=== PATIENT | female | born 1940 | race Caucasian/White ===

== ENCOUNTER 2022-12-18 09:56 | Day surgery (SDC) | payer MEDICARE, SELFPAY ==
[2022-12-18] MEDS: Tropicam./Phenyleph. (1/2.5%) 5 ML BTL OS ×3 (10:44→10:56)
[2022-12-18 10:45] VITALS: BP 159/84; PULSE 75; RESP 18; TEMP 36.4; O2SAT 96
--- NOTE | 2022-12-18 11:14 | ANES.PREOP_ITS ---
General Info Date of Service Date Performed: 12/18/22 Height: 4 ft 10.5 in Weight: 81.647 kg Body Mass Index (BMI): 36.9 Surgical Procedure: Operation Date: 12/18/22 12:10 Proposed Procedure Side Surgeon p Cataract Extraction with IOL Implant Left Kannan Babb MD Meds Allergies and Home Medications Allergies Allergy/AdvReac Type Severity Reaction Status Date / Time Sulfa (Sulfonamide Allergy Severe Headache Unverified 12/18/22 10:35 Antibiotics) amlodipine [From [facility]] Allergy Intermediate Swelling/Ed Unverified 12/18/22 10:35 cristal Home Medication Medication Instructions Recorded acetaminophen 300 mg-codeine 30 mg 1 tab PO Q8H PRN 12/16/22 tablet albuterol sulfate 90 mcg/actuation 1 puff inhalation DIRECTED 12/16/22 aerosol inhaler (ProAir HFA) allopurinol 100 mg tablet 200 mg PO HS 12/16/22 celecoxib 200 mg capsule 200 mg PO HS 12/16/22 cholecalciferol (vitamin D3) 50 2,000 unit PO DAILY 12/16/22 mcg (2,000 unit) tablet (Vitamin D3) colchicine (gout) 0.6 mg tablet 0.6 mg PO DIRECTED 12/16/22 cyclobenzaprine 7.5 mg tablet 7.5 mg PO DIRECTED PRN 12/16/22 duloxetine 60 mg capsule,delayed 60 mg PO HS 12/16/22 release insulin glargine 100 unit/mL (3 28 unit subcut DAILY 12/16/22 mL) subcutaneous pen (Lantus Solostar U-100 Insulin) lisinopril 5 mg tablet 15 mg PO HS 12/16/22 metoprolol succinate 100 mg 100 mg PO HS 12/16/22 tablet,extended release 24 hr multivitamin 1 tab PO HS 12/16/22 repaglinide 1 mg tablet 1 mg PO BID 12/16/22 Current Visit Medications: Current Medications Generic Name Dose Route Start Last Admin Trade Name Freq PRN Reason Stop Dose Admin Acetaminophen 1,000 mg 12/18/22 06:00 Acetaminophen 500 Mg Tab PO 01/17/23 05:59 Q4H PRN PRN Balanced Salt Solution 500 ml 12/18/22 06:00 Balanced Salt Soln.-Plus 500 Ml Bag OP 01/17/23 05:59 DIRECTED [facility] Miscellaneous Medication 0 ml 12/18/22 06:00 Prednisolone 1%, Moxifloxacin 0.5%, Nepafenac 0.1% 5ml Btl OS 01/17/23 05:59 DIRECTED [facility] Miscellaneous Medication 0 ml 12/18/22 06:00 12/18/22 10:56 Tropicam./Phenyleph. 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-related cataract, left eye H25.12 Medical History Medical History Aortic valve sclerosis Breast cancer CKD (chronic kidney disease), stage III Hypertensive disorder Osteoarthritis Type 2 diabetes mellitus Surgical History Surgical History (Updated 12/18/22 @ 10:42 by Dolly Goncalves) History of breast biopsy Hx of appendectomy Tobacco Smoking/Tobacco Use Status: Never Alcohol Alcohol Intake: current Alcohol intake frequency: holidays/special occasions only Substance Use Substance use: Never Substance use type: does not use Details: alcohol : t- 2years Vital Signs and Lab Results Vital Signs Most Recent Vital Signs in EMR: Most Recent Vital Signs Temp Pulse Resp BP Pulse Ox 36.4 C L 75 18 159/84 H 96 12/18/22 10:45 12/18/22 10:45 12/18/22 10:45 12/18/22 10:45 12/18/22 10:45 Point of Care Results Point of Care Results: Finger Stick Blood Glucose 200 12/18/22 10:37 Lab Results Blood Type / Crossmatch: No Data to Display Complete Blood Count: No Data to Display Complete Metabolic Panel: No Data to Display Liver Function Panel: No Data to Display Coagulation Panel: No Data to Display Cardiac Panel: No Data to Display Arterial Blood Gas: No Data to Display Venous Blood Gas: No Data to Display Pancreas Panel: No Data to Display Thyroid Panel: No Data to Display Infectious Disease: No Data to Display Blood Cultures: No Data to Display Toxicology Panel: No Data to Display Anesthesia Assessment and Plan Anesthesia History Personal History: No History of Anesthesia Complications Family History: No Family History of Anesthesia Complications Exercise Tolerance Exercise Tolerance: Metabolic Equivalents>4 Cardiac & Pulmonary Exam Cardiac Exam: Heart Murmur Present Pulmonary Exam: Clear Bilateral Breath Sounds Implantable Cardiac Device Does patient have a Pacemaker or an ICD?: No Airway Exam Known Difficult Airway: No Mallampati Class: 1 Mouth Opening: Normal (> 3cm) Thyromental Distance: Greater than 3 cm Neck Range of Motion: Full ROM Neck Circumference: Normal Teeth Condition: Normal Dentition ASA Classification ASA Score: ASA 3 Emergency Case?: No NPO Status NPO Status: NPO Clears >2 hours, Solids >8 hours Anesthesia Plan Resuscitation Status: Full Code Anesthesia Technique: MAC Anesthesia Airway Planned: Natural Airway Monitors Used: Standard Monitors
[2022-12-18 11:45] VITALS: BMI 36.9
[2022-12-18] MEDS: Balanced Salt Soln.-PLUS 500 ML BAG OP (11:57)
[2022-12-18] MEDS: Tetracaine 0.5% 4 ML BTL OS (11:58)
[2022-12-18] MEDS: Duovisc Viscoelastic System EACH 1 EACH (11:59)
[2022-12-18] MEDS: Lidocaine 1% Pres-Free 5 ML VIAL (11:59)
[2022-12-18] MEDS: Phenylephrine/Lidocaine (15/10) MG/ML 1 ML VIAL (12:00)
[2022-12-18] MEDS: Povidone-Iodine Ophth 30 ML BTL (12:00)
[2022-12-18 12:16] VITALS: BP 144/82; PULSE 60; RESP 18; TEMP 36.6; O2SAT 96
--- NOTE | 2022-12-18 12:16 | W.PM.DSUDISC ---
Date of service: 12/18/22 Time of Service: 12:16 Discharge Plan Disposition Patient Disposition: Home Discharge Details Attending Provider: Kannan Babb Primary Care Provider: Trever Gayle Home Meds and New Rx's Prescriptions: No Action multivitamin Tablet 1 tab PO HS celecoxib 200 mg capsule 200 mg PO HS metoprolol succinate 100 mg tablet extended release 24 hr 100 mg PO HS acetaminophen-codeine 300-30 mg tablet 1 tab PO Q8H PRN Patient Comments: TAKE ONE TABLET BY MOUTH EVERY 8 HOURS NEEDED FOR PAIN allopurinol 100 mg tablet 200 mg PO HS lisinopril 5 mg tablet 15 mg PO HS albuterol sulfate [ProAir HFA] 90 mcg/actuation Hfa Aerosol Inhaler 1 puff INHALATION DIRECTED colchicine (gout) 0.6 mg Tablet 0.6 mg PO DIRECTED repaglinide 1 mg Tablet 1 mg PO BID duloxetine 60 mg capsule,delayed release(DR/EC) 60 mg PO HS cyclobenzaprine 7.5 mg tablet 7.5 mg PO DIRECTED PRN insulin glargine [Lantus Solostar U-100 Insulin] 100 unit/mL (3 mL) Insulin Pen 28 unit SUBCUT DAILY cholecalciferol (vitamin D3) [Vitamin D3] 50 mcg (2,000 unit) Tablet 2,000 unit PO DAILY Discharge Instructions Stand Alone Forms: Post-op Topical Cataract, Milton Griffin ([facility]) Discharge Orders Discharge Orders: Discharge Order (Routine); Ordered 12/18/22 Ordered By: Kannan Babb DS: Diagnosis Discharge Diagnosis (1) Nuclear age-related cataract, left eye: Status: Resolved
--- NOTE | 2022-12-18 12:17 | W.PM.OP ---
Date of service: 12/18/22 Time of Service: 12:17 Operative Note Operative Note DATE OF PROCEDURE: 12/18/22 PRE-OP DIAGNOSIS: Nuclear/cortical cataract, left eye POST-OP DIAGNOSIS: same PROCEDURE: Cataract extraction using phacoemulsification with intraocular lens implant, left eye SURGEON: Kannan Babb ANESTHESIA TYPE: Local By Surgeon and MAC Refer to Anesthesia Record PATHOLOGY: none sent COMPLICATIONS: None Patient was transported to: same day Patient's condition: stable Implants: Trino and Trino Tecnis Eyhance [id number] Indications: Progressive decreased vision due to cataract, left eye Procedure Description: CATARACT SURGERY OPERATIVE REPORT PREOPERATIVE DIAGNOSIS: 1. Nuclear/cortical cataract, left eye POSTOPERATIVE DIAGNOSIS: Same OPERATION: 1. Cataract extraction using phacoemulsification with posterior chamber intraocular lens implant, left eye. IOL: IOL Chemist Water Purification/Model: Trino & Trino Tecnis Eyhance DIB00 IOL Power: + 24.0 diopters IOL Serial Number: [id number] Optic Diameter: 6.0 mm Haptic/Overall Diameter: 13.0 mm PHACO INFO: ValerioMasquemedicoson Vision System with OZil and Active Fluidics Cumulative Dispersed Energy (CDE): 8.41 seconds SURGEON: Kannan Babb MD, BASHIR ANESTHESIA: Monitored A [facility] (MAC), with local sub-tenon's anesthetic infiltration COMPLICATIONS: None SPECIMENS: None INDICATIONS FOR PROCEDURE: Patient is an 82-year-old lady with history of diminished visual acuity in her left eye secondary to the development of nuclear cataract. She is significantly symptomatic that she desires cataract surgery and attempt to improve and maximize her vision. The option of cataract surgery was offered to the patient and she wished to proceed. See office notes for detailed information. PROCEDURE: The correct surgical eye was identified and marked as the left eye and the pupil was dilated in the preoperative area using mydriatics and cycloplegics. The dilated pupil size was 6.0 mm. The patient elected to proceed without oral sedation. The patient was brought to the operating room where cardiopulmonary monitoring was instituted and surgical time-out was performed, confirming the correct operative eye and IOL power. Topical anesthesia was administered and ophthalmic povidone-iodine 5% was instilled into the conjunctival fornices. The kalli-ocular area was prepped with Betadine 10% solution and draped in the usual sterile fashion for intraocular surgery, including an aperture drape. A Tegaderm transparent film dressing was cut in half and used to cover the lashes and lid margins. Care was taken to sequester the lashes and lid margins under the Tegaderm dressing. A lid speculum was placed between the lids of the operative eye and the Valerio LuxOR Revalia operating microscope was maneuvered into position. Aleida scissors were then used to make a conjunctival buttonhole approximately 6mm posterior to the limbus in the inferonasal quadrant. Blunt dissection was carried out to expose bare sclera, and a blunt-tipped sub-tenon?s anesthesia cannula was introduced and passed posteriorly along the globe where non-preserved plain lidocaine was injected into posterior sub-Tenon?s space. A sideport knife was used to make a paracentesis port. Intraocular phenylephrine/lidocaine was injected into the anterior chamber.. The anterior chamber was filled with viscoelastic. A keratome knife was used to construct a 2-plane near-clear corneal tunnel extending 2.0mm into clear cornea. A flap was raised on the anterior capsule and capsulorhexis forceps were used to complete a continuous curvilinear capsulorhexis of 5.0 mm. Balanced salt solution was then used to perform cortical cleaving hydrodissection and nuclear hydrodelineation until the lens could be freely rotated within the capsular bag. The lens nucleus was then disassembled and removed within the capsular bag and iris plane using phacoemulsification. Residual cortical material was removed using the irrigation/aspiration handpiece. The posterior capsule was carefully polished to remove as much residual lens epithelial cells as safely possible. The capsular bag was then inflated and the anterior chamber deepened with viscoelastic. The lens implant described above was inserted into the capsular bag using the Trino and Trino Simplicity pre-loaded injector. A Kuglen hook was used to dial the IOL into position. Residual viscoelastic was then removed first from posterior to the IOL, then from the anterior chamber using the I/A handpiece. The lens implant was noted to center nicely within the capsular bag. The incisions were stromally hydrated, and the anterior chamber was reformed using BSS. Then 0.5cc of moxifloxacin 1.0mg/ml were injected into the capsular bag and anterior chamber. The incisions were checked with a Weck spear and found to be secure. Several drops of ophthalmic povidone-iodine 5% were then applied to the eye followed by two drops of Imprimis combination prednisolone/moxifloxacin/nepafenac solution. The drapes were removed and a clear plastic protective eye shield was placed over the eye. The patient was then returned to Same Day Surgery in stable condition.
--- NOTE | 2022-12-18 12:52 | W.ANESPOSTOP ---
Postoperative Evaluation Date, Time and Location Date Performed: 12/18/22 Time Performed: 12:25 Patient Location: Day Surgery Unit Vital Signs Most Recent Imported Vital Signs: Most Recent Vital Signs Temp Pulse Resp BP Pulse Ox 36.6 C 60 18 144/82 H 96 12/18/22 12:16 12/18/22 12:16 12/18/22 12:16 12/18/22 12:16 12/18/22 12:16 Pain Score Most Recent Pain Score: Most Recent Pain Score Pain Level 0 12/18/22 12:16 Assessment Mental Status: Awake (Alert & Oriented to Patient Baseline) Airway and Respiratory Function: Patent airway with normal (patient baseline) respiratory exam Cardiovascular Function: Hemodynamically Stable Hydration Status: Adequately Hydrated Nausea & Vomiting: No Nausea or Vomiting Pain: Pt. Denies Any Pain Peripheral Nerve Block: Patient did not receive a nerve block
== END 2022-12-18 12:36 | disposition home or self-care (01) ==
LOC: SUR 09:58
PROVIDERS: PCP Family Medicine; Visit Provider Ophthalmology
PROC: (CPT 66984; principal; 2022-12-18 12:00)
DX: H25.12 Age-related nuclear cataract, left eye (principal); I10 Essential (primary) hypertension
CPT/HCPCS: 66984; V2632

== ENCOUNTER 2023-01-01 08:09 | Day surgery (SDC) | payer MEDICARE, SELFPAY ==
--- NOTE | 2023-01-01 07:04 | HPE_ITS ---
Assessment and Plan Assessment and plan (1) Cortical age-related cataract, right eye: Status: Acute Assessment and plan: Assessment: Visually significant cataract of the right eye. Plan: Cataract extraction with lens implantation of the right eye. (2) Nuclear age-related cataract, right eye: Status: Acute Assessment and plan: Assessment: Visually significant cataract of the right eye. Plan: Cataract extraction with lens implantation of the right eye. (3) Diabetic macular edema, right eye: Status: Acute Assessment and plan: Assessment: Diabetic macular edema, right eye. Plan: Subtenons Kenalog at the time of ce/iol to reduce risk of exacerbation of DME History of Present Illness History of Present Illness Chief Complaint: Progressive decreased vision right eye Narrative: Patient is an 82-year-old lady with history of diabetes with diabetic macular edema in the right eye. She noted progressive decreased vision in both eyes at both distance and near, needing more light to see clearly. She also has difficulty with driving particularly at night due to glare. On examination she was noted to have moderate bilateral nuclear and cortical cataract with clinically significant diabetic macular edema in the right eye. The option of cataract surgery was offered to the patient and she wished to proceed. She underwent cataract surgery in the left eye on 12/18/2022 and postoperatively has regained uncorrected visual acuity of 20/40 in the left eye. She now presents for cataract surgery in the right eye. Review of Systems All systems reviewed & are unremarkable except as noted in HPI and below PFSH All Active Problems Cortical age-related cataract, right eye (Acute) Nuclear age-related cataract, right eye (Acute) Diabetic macular edema, right eye (Acute) Medical History Type 2 diabetes mellitus Breast cancer Osteoarthritis Hypertensive disorder CKD (chronic kidney disease), stage III Aortic valve sclerosis Surgical History Hx of cataract surgery left Hx of appendectomy History of breast biopsy Social History Smoking/Tobacco Use Status: Never Smoking risk assessment performed?: Yes Alcohol Intake: current Alcohol Intake frequency: holidays/special occasions only Drug use: Never Substance use type: does not use Details: alcohol : t- 2years Housing: house Do you feel safe at home: Yes Do you feel safe in your relationship?: Yes Meds Allergies and Home Medications Allergies Allergy/AdvReac Type Severity Reaction Status Date / Time Sulfa (Sulfonamide Allergy Severe Headache Unverified 01/01/23 08:26 Antibiotics) amlodipine [From [facility]] Allergy Intermediate Swelling/Ed Unverified 01/01/23 08:26 cristal Home Medications Medication Instructions Recorded Confirmed Type acetaminophen 300 mg-codeine 30 mg 1 tab PO Q8H PRN 12/16/22 01/01/23 History tablet albuterol sulfate 90 mcg/actuation 1 puff inhalation DIRECTED 12/16/22 12/30/22 History aerosol inhaler (ProAir HFA) allopurinol 100 mg tablet 200 mg PO HS 12/16/22 01/01/23 History celecoxib 200 mg capsule 200 mg PO HS 12/16/22 01/01/23 History cholecalciferol (vitamin D3) 50 2,000 unit PO DAILY 12/16/22 01/01/23 History mcg (2,000 unit) tablet (Vitamin D3) colchicine (gout) 0.6 mg tablet 0.6 mg PO DIRECTED 12/16/22 12/30/22 History cyclobenzaprine 7.5 mg tablet 7.5 mg PO DIRECTED PRN 12/16/22 01/01/23 History duloxetine 60 mg capsule,delayed 60 mg PO HS 12/16/22 01/01/23 History release insulin glargine 100 unit/mL (3 28 unit subcut DAILY 12/16/22 01/01/23 History mL) subcutaneous pen (Lantus Solostar U-100 Insulin) lisinopril 5 mg tablet 15 mg PO HS 12/16/22 01/01/23 History metoprolol succinate 100 mg 100 mg PO HS 12/16/22 01/01/23 History tablet,extended release 24 hr multivitamin 1 tab PO HS 12/16/22 01/01/23 History repaglinide 1 mg tablet 1 mg PO BID 12/16/22 01/01/23 History Exam Eyes Other: Most recent ocular examination is significant for uncorrected visual acuity of 2040 in the left eye, corrected visual acuity is 20/40 in the right eye. Intraocular pressure is 25 OD, 20 OS. Extract motility is normal. Slit-lamp examination reveals moderate nuclear and cortical cataract in the right eye with pupil dilating to 5 mm. There is a well-positioned PCIOL in the left eye with clear posterior capsule. Funduscopic examination shows disc cupping of 0.15 OU with normal vessels OU. In the right eye the macula has a central yellow spot. Resp Auscultation: clear to auscultation bilaterally Cardio Rate: regular rate Rhythm: regular rhythm
--- NOTE | 2023-01-01 08:20 | W.ANESPRE ---
General Info Date of Service Date Performed: 01/01/23 Height: 4 ft 10.5 in Weight: 81.647 kg Body Mass Index (BMI): 36.9 Surgical Procedure: Operation Date: 01/01/23 10:40 Proposed Procedure Side Surgeon p Cataract Extraction with IOL Implant Right Kannan Babb MD Meds Allergies and Home Medications Allergies Allergy/AdvReac Type Severity Reaction Status Date / Time Sulfa (Sulfonamide Allergy Severe Headache Unverified 01/01/23 08:26 Antibiotics) amlodipine [From [facility]] Allergy Intermediate Swelling/Ed Unverified 01/01/23 08:26 cristal Home Medication Medication Instructions Recorded acetaminophen 300 mg-codeine 30 mg 1 tab PO Q8H PRN 12/16/22 tablet albuterol sulfate 90 mcg/actuation 1 puff inhalation DIRECTED 12/16/22 aerosol inhaler (ProAir HFA) allopurinol 100 mg tablet 200 mg PO HS 12/16/22 celecoxib 200 mg capsule 200 mg PO HS 12/16/22 cholecalciferol (vitamin D3) 50 2,000 unit PO DAILY 12/16/22 mcg (2,000 unit) tablet (Vitamin D3) colchicine (gout) 0.6 mg tablet 0.6 mg PO DIRECTED 12/16/22 cyclobenzaprine 7.5 mg tablet 7.5 mg PO DIRECTED PRN 12/16/22 duloxetine 60 mg capsule,delayed 60 mg PO HS 12/16/22 release insulin glargine 100 unit/mL (3 28 unit subcut DAILY 12/16/22 mL) subcutaneous pen (Lantus Solostar U-100 Insulin) lisinopril 5 mg tablet 15 mg PO HS 12/16/22 metoprolol succinate 100 mg 100 mg PO HS 12/16/22 tablet,extended release 24 hr multivitamin 1 tab PO HS 12/16/22 repaglinide 1 mg tablet 1 mg PO BID 12/16/22 Current Visit Medications: Current Medications Generic Name Dose Route Start Last Admin Trade Name Freq PRN Reason Stop Dose Admin Acetaminophen 1,000 mg 01/01/23 06:00 Acetaminophen 500 Mg Tab PO 01/31/23 05:59 Q4H PRN PRN Balanced Salt Solution 500 ml 01/01/23 06:00 Balanced Salt Soln.-Plus 500 Ml Bag OP 01/31/23 05:59 DIRECTED [facility] Miscellaneous Medication 0 ml 01/01/23 06:00 Prednisolone 1%, Moxifloxacin 0.5%, Nepafenac 0.1% 5ml Btl OD 01/31/23 05:59 DIRECTED [facility] Miscellaneous Medication 0 ml 01/01/23 06:00 Tropicam./Phenyleph. (1/2.5%) 5 Ml Btl OD 01/31/23 05:59 DIRECTED [facility] Tetracaine HCl 0 ml 01/01/23 06:00 Tetracaine 0.5% 4 Ml Btl OD 01/31/23 05:59 DIRECTED [facility] PFSH Active Problems Active Problems: Problem Status Onset Code Cortical age-related cataract, right eye H25.011 Nuclear age-related cataract, right eye H25.11 Diabetic macular edema, right eye E11.311 Nuclear age-related cataract, left eye H25.12 Medical History Medical History Type 2 diabetes mellitus Breast cancer Osteoarthritis Hypertensive disorder CKD (chronic kidney disease), stage III Aortic valve sclerosis Surgical History Surgical History Hx of cataract surgery left Hx of appendectomy History of breast biopsy Tobacco Smoking/Tobacco Use Status: Never Alcohol Alcohol Intake: current Alcohol intake frequency: holidays/special occasions only Substance Use Substance use: Never Substance use type: does not use Details: alcohol : t- 2years Vital Signs and Lab Results Vital Signs Most Recent Vital Signs in EMR: Temp Pulse Resp BP Pulse Ox 36.4 C L 74 16 156/72 H 97 01/01/23 08:41 01/01/23 08:41 01/01/23 08:41 01/01/23 08:41 01/01/23 08:41 Lab Results Blood Type / Crossmatch: No Data to Display Complete Blood Count: No Data to Display Complete Metabolic Panel: No Data to Display Liver Function Panel: No Data to Display Coagulation Panel: No Data to Display Cardiac Panel: No Data to Display Arterial Blood Gas: No Data to Display Venous Blood Gas: No Data to Display Pancreas Panel: No Data to Display Thyroid Panel: No Data to Display Infectious Disease: No Data to Display Blood Cultures: No Data to Display Toxicology Panel: No Data to Display Anesthesia Assessment and Plan Anesthesia History Personal History: No History of Anesthesia Complications Family History: No Family History of Anesthesia Complications Exercise Tolerance Exercise Tolerance: Metabolic Equivalents>4 Cardiac & Pulmonary Exam Cardiac Exam: Heart Murmur Present Pulmonary Exam: Clear Bilateral Breath Sounds Implantable Cardiac Device Does patient have a Pacemaker or an ICD?: No Airway Exam Known Difficult Airway: No Mallampati Class: 1 Mouth Opening: Normal (> 3cm) Thyromental Distance: Greater than 3 cm Neck Range of Motion: Full ROM Neck Circumference: Normal Teeth Condition: Normal Dentition ASA Classification ASA Score: ASA 3 Emergency Case?: No NPO Status NPO Status: NPO Clears >2 hours, Solids >8 hours Anesthesia Plan Resuscitation Status: Full Code Anesthesia Technique: MAC Anesthesia Airway Planned: Natural Airway Monitors Used: Standard Monitors Preoperative Comments:: No MKO prior visit. Planning no sedation today. No change in health or status since last visit per patient
[2023-01-01] MEDS: Tropicam./Phenyleph. (1/2.5%) 5 ML BTL OD ×3 (08:39→08:58)
[2023-01-01 08:41] VITALS: BP 156/72; PULSE 74; RESP 16; TEMP 36.4; O2SAT 97
[2023-01-01 09:20] VITALS: BMI 36.9
[2023-01-01] MEDS: Balanced Salt Soln.-PLUS 500 ML BAG OP (09:51)
[2023-01-01] MEDS: Lidocaine 1% Pres-Free 5 ML VIAL (09:52)
[2023-01-01] MEDS: Tetracaine 0.5% 4 ML BTL OD (09:52)
[2023-01-01] MEDS: Duovisc Viscoelastic System EACH 1 EACH (09:53)
[2023-01-01] MEDS: Phenylephrine/Lidocaine (15/10) MG/ML 1 ML VIAL (09:54)
[2023-01-01] MEDS: Povidone-Iodine Ophth 30 ML BTL (09:55)
[2023-01-01] MEDS: Triamcinolone 40 MG/ML VIAL (09:56)
[2023-01-01 10:21] VITALS: BP 133/59; PULSE 66; RESP 16; TEMP 36.5; O2SAT 100
--- NOTE | 2023-01-01 10:21 | W.PM.DSUDISC ---
Date of service: 01/01/23 Time of Service: 10:21 Discharge Plan Disposition Patient Disposition: Home Discharge Details Attending Provider: Kannan Babb Primary Care Provider: Trever Gayle Home Meds and New Rx's Prescriptions: No Action multivitamin Tablet 1 tab PO HS celecoxib 200 mg capsule 200 mg PO HS metoprolol succinate 100 mg tablet extended release 24 hr 100 mg PO HS acetaminophen-codeine 300-30 mg tablet 1 tab PO Q8H PRN Patient Comments: TAKE ONE TABLET BY MOUTH EVERY 8 HOURS NEEDED FOR PAIN allopurinol 100 mg tablet 200 mg PO HS lisinopril 5 mg tablet 15 mg PO HS albuterol sulfate [ProAir HFA] 90 mcg/actuation Hfa Aerosol Inhaler 1 puff INHALATION DIRECTED colchicine (gout) 0.6 mg Tablet 0.6 mg PO DIRECTED Patient Comments: pt. reports she has never taken repaglinide 1 mg Tablet 1 mg PO BID duloxetine 60 mg capsule,delayed release(DR/EC) 60 mg PO HS cyclobenzaprine 7.5 mg tablet 7.5 mg PO DIRECTED PRN insulin glargine [Lantus Solostar U-100 Insulin] 100 unit/mL (3 mL) Insulin Pen 28 unit SUBCUT DAILY Patient Comments: 212912/31/22 cholecalciferol (vitamin D3) [Vitamin D3] 50 mcg (2,000 unit) Tablet 2,000 unit PO DAILY Discharge Instructions Stand Alone Forms: Post-op Topical Cataract, Milton Saucedoey ([facility]) Discharge Orders Discharge Orders: Discharge Order (Routine); Ordered 01/01/23 Ordered By: Kannan Babb DS: Diagnosis Discharge Diagnosis (1) Cortical age-related cataract, right eye: Status: Resolved (2) Nuclear age-related cataract, right eye: Status: Resolved (3) Diabetic macular edema, right eye: Status: Chronic
--- NOTE | 2023-01-01 10:22 | ROE_ITS ---
Date of service: 01/01/23 Time of Service: 10: Operative Note Operative Note DATE OF PROCEDURE: 01/01/23 PRE-OP DIAGNOSIS: Nuclear/cortical cataract, right eye Diabetic macular edema, right eye POST-OP DIAGNOSIS: same PROCEDURE: Cataract extraction using phacoemulsification with intraocular lens implant, right eye SURGEON: Kannan Babb ANESTHESIA TYPE: Local By Surgeon and MAC Refer to Anesthesia Record ESTIMATED BLOOD LOSS: 0 PATHOLOGY: none sent COMPLICATIONS: None Patient was transported to: same day Patient's condition: stable Implants: Trino & Trino Tecnis Eyhance [id number] Indications: Progressive visual loss due to cataract, right eye Procedure Description: CATARACT SURGERY OPERATIVE REPORT PREOPERATIVE DIAGNOSIS: 1. Nuclear/cortical cataract, right eye 2. Diabetic macular edema, right eye POSTOPERATIVE DIAGNOSIS: Same OPERATION: 1. Cataract extraction using phacoemulsification with posterior chamber intraocular lens implant, right eye. IOL: IOL Drywall Foreman/Model: Trino & Trino Tecnis Eyhance DIB00 IOL Power: + 25.0 diopters IOL Serial Number: [id number] Optic Diameter: 6.0mm Haptic/Overall Diameter: 13.0mm PHACO INFO: Valerio SamEnricourion Vision System with OZil and Active Fluidics Cumulative Dispersed Energy (CDE): 5.46 seconds SURGEON: Kannan Babb MD, BASHIR ANESTHESIA: Monitored Anesthesia Care (MAC), with local sub-tenon's anesthetic infiltration COMPLICATIONS: None SPECIMENS: None INDICATIONS FOR PROCEDURE: Patient is an 82-year-old lady with history of diabetes with diabetic macular edema of the right eye who has developed a significant nuclear/cortical cataract. She is significantly symptomatic that she desires cataract surgery and attempt to improve and maximize her vision. The option of cataract surgery was offered to the patient and she wished to proceed. She has already undergone cataract surgery in the left eye and is doing well postoperatively. She now presents for cataract surgery in the right eye. PROCEDURE: The correct surgical eye was identified and marked as the right eye and the pupil was dilated in the preoperative area using mydriatics and cycloplegics. The dilated pupil size was 6.0 mm. The patient elected to proceed without oral sedation. The patient was brought to the operating room where cardiopulmonary monitoring was instituted and surgical time-out was performed, confirming the correct operative eye and IOL power. Topical anesthesia was administered and ophthalmic povidone-iodine 5% was instilled into the conjunctival fornices. The kalli-ocular area was prepped with Betadine 10% solution and draped in the usual sterile fashion for intraocular surgery, including an aperture drape. A Tegaderm transparent film dressing was cut in half and used to cover the lashes and lid margins. Care was taken to sequester the lashes and lid margins under the Tegaderm dressing. A lid speculum was placed between the lids of the operative eye and the Valerio LuxOR Revalia operating microscope was maneuvered into position. Aleida scissors were then used to make a conjunctival buttonhole approximately 6mm posterior to the limbus in the inferonasal quadrant. Blunt dissection was carried out to expose bare sclera, and a blunt-tipped sub-tenon?s anesthesia cannula was introduced and passed posteriorly along the globe where non- preserved plain lidocaine was injected into posterior sub-Tenon?s space. A sideport knife was used to make a paracentesis port. Intraocular phenylephrine/lidocaine was injected into the anterior chamber. The anterior chamber was filled with viscoelastic. A keratome knife was used to construct a 2-plane clear corneal tunnel extending 2.0mm into clear cornea. A flap was raised on the anterior capsule and capsulorhexis forceps were used to complete a continuous curvilinear capsulorhexis of 4.8 mm. Capsulorhexis wanted to go peripherally in the inferotemporal quadrant. Additional Viscoat was injected into the anterior chamber to flatten the capsule and deep in the anterior chamber, and the capsulorrhexis was brought back centrally. Final capsulorrhexis was ovoid/teardrop shaped Balanced salt solution was then used to perform cortical cleaving hydrodissection and nuclear hydrodelineation until the lens could be freely rotated within the capsular bag. The lens nucleus was then disassembled and removed within the capsular bag and iris plane using phacoemulsification. Resi dual cortical material was removed using the I/A handpiece. The posterior capsule was carefully polished to remove as much residual lens epithelial cells as safely possible. The capsular bag was then inflated and the anterior chamber deepened with cohesive viscoelastic. The lens implant described above was inserted into the capsular bag using the Trino and Jorge Simplicity pre- loaded injector. A Kuglen hook was used to dial the IOL into position. Residual viscoelastic was then removed first from posterior to the IOL, then from the anterior chamber using the I/A handpiece. The lens implant was dialed such that the haptic was in the inferior temporal quadrant in the area of peripheral capsulorhexis extension. The lens implant was noted to center nicely within the capsular bag. The incisions were stromally hydrated, and the anterior chamber was reformed using BSS. Then 0.5cc of moxifloxacin 1.0mg/ml were injected into the capsular bag and anterior chamber. The incisions were checked with a Weck spear and found to be secure. Several drops of ophthalmic povidone- iodine 5% were then applied to the eye followed by two drops of Imprimis combination prednisolone/moxifloxacin/nepafenac solution. The drapes were removed and a clear plastic protective eye shield was placed over the eye. The patient was then returned to [facility] Day Surgery in stable condition.
--- NOTE | 2023-01-01 10:58 | W.ANESPOSTOP ---
Postoperative Evaluation Date, Time and Location Date Performed: 01/01/23 Time Performed: 10:22 Patient Location: Day Surgery Unit Vital Signs Most Recent Imported Vital Signs: Most Recent Vital Signs Temp Pulse Resp BP Pulse Ox 36.5 C 66 16 133/59 L 100 01/01/23 10:21 01/01/23 10:21 01/01/23 10:21 01/01/23 10:21 01/01/23 10:21 Pain Score Most Recent Pain Score: Most Recent Pain Score Pain Level 4 01/01/23 10:21 Assessment Mental Status: Awake (Alert & Oriented to Patient Baseline) Airway and Respiratory Function: Patent airway with normal (patient baseline) respiratory exam Cardiovascular Function: Hemodynamically Stable Hydration Status: Adequately Hydrated Nausea & Vomiting: No Nausea or Vomiting Pain: Pt. Denies Any Pain Peripheral Nerve Block: Other (Local by Dr. Babb)
== END 2023-01-01 10:50 | disposition home or self-care (01) ==
LOC: SUR 08:09
PROVIDERS: PCP Family Medicine; Visit Provider Ophthalmology
PROC: (CPT 66984; principal; 2023-01-01 10:30)
DX: H25.011 Cortical age-related cataract, right eye (principal); H25.11 Age-related nuclear cataract, right eye; E11.311 Type 2 diabetes mellitus with unspecified diabetic retinopathy with macular edema; I10 Essential (primary) hypertension; Z98.42 Cataract extraction status, left eye
CPT/HCPCS: 66984; 00123; V2632